=== PATIENT | male | born 1995 | race African-American/Black ===

== ENCOUNTER 2017-05-22 23:06 | Emergency (ER) | payer SELFPAY ==
[~2017-05-22] VITALS: Ht 175.3 cm; Wt 72.0 kg
[2017-05-22 23:08] VITALS: BP 139/81; PULSE 88; RESP 18; TEMP 98.8; O2SAT 98
--- NOTE | 2017-05-22 23:25 | PD ---
HPI Chief Complaint: Complaint Time Seen by Provider: 23:24 Travel History International Travel<30 days: No Contact w/Intl Traveler<30days: No Traveled to known affect area: No History of Present Illness HPI 21-year-old male here for STD exposure. He reports that he received a phone call from a woman reporting that she was just tested and treated for an unknown STD. The patient has been having some dysuria and white urethral discharge. Past few days. Burning sensation, worse when urinating. Denies any testicular or scrotal skin lesions. His 2 brothers are being evaluated here for the same issue tonight. No other complaints. PFSH Past Medical History Diminished Hearing: No Immunizations Current: No Tetanus Vaccination: Unknown Influenza Vaccination: No Past Surgical History Surgical History: No Previous Surgery Social History Alcohol Use: Yes Tobacco Use: No Substance Use: No Allergies-Medications (Allergen,Severity, Reaction): Coded Allergies: No Known Allergies (Verified Allergy, Unknown, 05/22/17) Reported Meds & Prescriptions Reported Meds & Active Scripts Active No Active Prescriptions or Reported Medications Review of Systems Except as stated in HPI: all other systems reviewed are Neg Physical Exam Narrative GENERAL: Well-nourished male in no acute distress SKIN: Warm and dry. HEAD: Atraumatic. Normocephalic. EYES: Pupils equal and round. No scleral icterus. No injection or drainage. ENT: No nasal bleeding or discharge. Mucous membranes pink and moist. NECK: Trachea midline. No JVD. CARDIOVASCULAR: Regular rate and rhythm. No murmur appreciated. RESPIRATORY: No accessory muscle use. Clear to auscultation. Breath sounds equal bilaterally. GASTROINTESTINAL: Abdomen soft, non-tender, nondistended. Hepatic and splenic margins not palpable. examination: Circumcised, distended testicles, white urethral discharge Data Data Last Documented VS Vital Signs Date Time Temp Pulse Resp B/P (MAP) Pulse Ox O2 Delivery O2 Flow Rate FiO2 05/22/17 23:08 98.8 88 18 139/81 (100) 98 Orders Orders Ed Discharge Order (05/22/17 23:24) Gc And Chlamydia Pcr (05/22/17 23:24) Azithromycin Powd Pack (Zithromax Powd P (05/22/17 23:30) Ceftriaxone Inj (Rocephin Inj) (05/22/17 23:30) Lidocaine 1% Inj (50 Ml) (Xylocaine 1% I (05/22/17 23:30) MDM Medical Decision Making Medical Screen Exam Complete: Yes Emergency Medical Condition: Yes Medical Record Reviewed: Yes Differential Diagnosis Urethritis, STD exposure, hepatitis, HIV, syphilis, herpes Narrative Course Examination is consistent with urethritis. Treated empirically with Rocephin and azithromycin. Stable for discharge. Diagnosis Primary Impression: Urethritis Referrals: [facility] Dept. Additional Instructions: Follow-up at health department or the primary care physician for routine STD testing. Med/Other Pt SpecificInfo: No Change to Meds Scripts No Active Prescriptions or Reported Meds Disposition: DISCHARGE HOME Condition: Stable Chilo Saunders May 22, 2017 23:25
[2017-05-22] MEDS ORDERED: LIDOCAINE HCL 1% 50 ML VIAL XX ONE (23:30)
[2017-05-22] MEDS ORDERED: AZITHROMYCIN PWD FOR SUSP 1 GM PACKET PO ONE (23:30)
[2017-05-22] MEDS ORDERED: cefTRIAXone 250 MG VIAL IM ONE (23:30)
== END 2017-05-23 00:20 | disposition home or self-care (01) ==
LOC: NEPD 23:06
DX: N34.2 Other urethritis (principal)
CPT/HCPCS: 87491; 87591; 96372; 99284; J0696